=== PATIENT | male | born 1960 | race Caucasian/White ===

== ENCOUNTER 2021-05-25 06:05 | Day surgery (SDC) | payer MEDICARE ==
[~2021-05-25] VITALS: Ht 177.8 cm; Wt 147.7 kg
[~2021-05-25 06:05] MED LIST: BIAXIN500 MG PO; GRAPE SEED50 M1 PO; HYZAAR 100-12.1 EACH; NORCO 10-325 T1 EACH PO; PERCOCET 5-3251 EACH PO
--- NOTE | 2021-05-25 07:59 | NUR ---
05/25/21 0759 Tosha Moe 0755- PT ARRIVES TO PACU AWAKE AND TALKING. PT REPORTS NO PAIN OR NAUSEA. RESP EVEN AND UNLABORED. OXYGEN SAT MID TO HIGH 90'S ON RA.
--- NOTE | 2021-05-25 09:05 | NUR ---
CONNECTED WITH PT, HAS HAD SCOPE BEFORE GAVE BLESSING WILL FOLLOW
--- NOTE | 2021-05-25 09:23 | OR ---
[facility] [address] [place], [place] [address] Signed DATE OF OPERATION: 05/25/2021 SURGEON: Lucia Chamberlain MD PREOPERATIVE DIAGNOSES: 1. Personal history of colonic polyps in 2016. 2. Diverticulosis. 3. Internal hemorrhoids. POSTOPERATIVE DIAGNOSES: 1. Moderate sigmoid diverticulosis. 2. Minimal to moderate internal hemorrhoids. 3. 4 mm polyp at 28 cm (sigmoid). 4. 4 mm polyp at 60 cm. 5. 8 mm and 3 mm polyps at 120 cm (snare). 6. 4 mm polyp at 105 cm. 7. 4 mm polyp at 22 cm (rectum). PROCEDURE: Colonoscopy with snare polypectomy and hot biopsy. ESTIMATED BLOOD LOSS: None. INDICATIONS: Oneil is a 60-year-old gentleman asked to see me for followup colonoscopy. He came for his initial screening colonoscopy in 2016 with myself. He had adenomatous polyps removed at that time. He also has diverticulosis along with internal hemorrhoids. Currently, he has no lower GI complaints. There is no family history of colon cancer or polyps. He is on disability and has to take daily hydrocodone. He is also a very large man. He said he cut his drinking way down as well. We had used monitored anesthesia care in 2016. We went ahead and did that again on this occasion for his safety and efficacy. In the office, I had given him a pamphlet on colonoscopy. He recalled the test well. There is risk including, but not limited to gas bloating, crampy abdominal pain, bleeding, perforation requiring surgery, and missed diagnosis. We also had discussed the need for the monitored anesthesia care. He had expressed understanding and wished to proceed. PROCEDURE NOTE: Oneil was taken into our endoscopy suite and placed in the left lateral decubitus Electronically Signed By: LUCIA CHAMBERLAIN MD 05/25/21 0923 PATIENT NAME: ONEIL WILKINS OPERATIVE REPORT DATE OF : 64 REPORT #: [id number] PHYSICIAN: LUCIA CHAMBERLAIN MD PCP: JOSH VEGA MD REPORT IS CONFIDENTIAL AND NOT TO BE RELEASED WITHOUT AUTHORIZATION [facility] [address], [place] [address] Signed position. He was given monitored anesthesia care with propofol per our nurse patent chemist. A digital rectal exam was performed and he is a very large man. Not much in the way of external hemorrhoids. He had good sphincter tone. I can feel the bottom of his prostate and it is enlarged and indurated. The adult colonoscope was then introduced and advanced all the way around into the cecum under direct visualization of the camera without difficulty. Unfortunately, his prep was not the best. It sounds like he had a turkey sandwich midmorning yesterday before starting his prep. He probably should have a double prep in the future particularly since he has to use hydrocodone every day. The scope had been slowly withdrawn. We could easily see his ileocecal valve. We took pictures throughout for photodocumentation. We removed the above mentioned polyps with the help of hot biopsy forceps. We did use our snare for an 8 mm polyp at 120 cm. The base of that was then destroyed with hot cautery. Again, he has diverticuli in the sigmoid colon. They are moderate in size, moderate in number, and scattered about. Once in the rectum, the scope had been retroflexed. He does have minimal to moderate internal hemorrhoid columns. After this, the gas was suctioned out and the colonoscope removed. Oneil tolerated the procedure quite well. RECOMMENDATIONS: I will see Oneil back in my office in 7 to 14 days to review his results. He should consider double bowel prep in the future due to his daily need for hydrocodone. Lucia Chamberlain MD ALB/MODL /[id number] cc: MD Josh Lebron MD Copies: LUCIA CHAMBERLAIN MD, ROBERT D DMD ~ Electronically Signed By: LUCIA CHAMBERLAIN MD 05/25/21 0923 PATIENT NAME: ONEIL WILKINS OPERATIVE REPORT DATE OF : 64 REPORT #: [id number] PHYSICIAN: LUCIA CHAMBERLAIN MD PCP: JOSH VEGA MD REPORT IS CONFIDENTIAL AND NOT TO BE RELEASED WITHOUT AUTHORIZATION
--- NOTE | 2021-05-28 10:20 | PATH ---
[facility] [address] [place], [place] [address] Signed SPECIMEN(S): A SIGMOID POLYP AT 28 CM SPECIMEN(S): B COLON POLYP AT 60 CM SPECIMEN(S): C COLON POLYP AT 120 CM SPECIMEN(S): D COLON POLYP AT 105 CM SPECIMEN(S): E COLON POLYP AT 22 CM SPECIMEN SOURCE: A. SIGMOID POLYP AT 28 CM B. COLON POLYP AT 60 CM C. COLON POLYP AT 120 CM D. COLON POLYP AT 105 CM E. COLON POLYP AT 22 CM CLINICAL HISTORY: Colonoscopy. History of polyps, diverticulosis. Postop: Polyps (colon), diverticulosis, internal hemorrhoids. FINAL PATHOLOGIC DIAGNOSIS: A. Colon, sigmoid, polyp at 28 cm, polypectomy: - Hyperplastic polyp. - Negative for dysplasia or malignancy. B. Colon, polyp at 60 cm, polypectomy: - Tubular adenoma. - Negative for high-grade dysplasia or malignancy. C. Colon, poly at 120 cm, polypectomy: - Fragments of tubular adenoma. - Negative for high-grade dysplasia or malignancy. D. Colon, polyp at 105 cm, polypectomy: - Tubular adenoma. - Negative for high-grade dysplasia or malignancy. E. Colon, polyp at 22 cm, polypectomy: - Hyperplastic polyp. - Negative for dysplasia or malignancy. NAL:cml:C2NR MICROSCOPIC EXAMINATION: Histologic sections of all submitted blocks are examined by light microscopy. These findings, together with the gross examination, support the pathologic diagnosis. GROSS DESCRIPTION: PATIENT NAME: CARIDAD WILKINS PATHOLOGY DATE OF : 64 REPORT #: [id number] PHYSICIAN: STELLA HINOJOSA PCP: JOSH VEGA MD REPORT IS CONFIDENTIAL AND NOT TO BE RELEASED WITHOUT AUTHORIZATION [facility] [address] [place], [place] [address] Signed Five specimens are received in five containers labeled with "WD." A. The specimen, labeled "WD, 1," and designated on the requisition "sigmoid polypectomy at 28 cm," is received in formalin and consists of two fragments of pink-singletary tissue (0.3 and 0.6 cm in greatest dimension). The specimen is submitted entirely in cassette (A1). B. The specimen, labeled "WD, 2," and designated on the requisition "60 cm colon polypectomy," is received in formalin and consists of one fragment of pink-singletary tissue (0.3 cm in greatest dimension). The specimen is submitted entirely in cassette (B1). C. The specimen, labeled "WD, 3," and designated on the requisition "colon polypectomy at 120 cm," is received in formalin and consists of two fragments of pink-singletary tissue (0.3 cm in greatest dimension). The specimen is submitted entirely in cassette (C1). D. The specimen, labeled "WD, 4," and designated on the requisition "colon polypectomy at 105 cm," is received in formalin and consists of one fragment of pink-singletary tissue (0.3 cm in greatest dimension). The specimen is submitted entirely in cassette (D1). E. The specimen, labeled "WD, 5," and designated on the requisition "colon Polypectomy at 22 cm," is received in formalin and consists of two fragments of pink-singletary tissue (0.3 cm in greatest dimension). The specimen is submitted entirely in cassette (E1). AC (under the direct supervision of a pathologist) The Gross Description was prepared using a voice recognition system. The report was reviewed for accuracy; however, sound-alike word errors, addition and/or deletions may occur. If there is any question about this report, please contact Client Services. PERFORMING LABORATORY: The technical component was performed by [facility] [address] (Steam Cleaner: Nallely Cerda MD; CLIA# [id number]) Professional interpretation was performed by [facility], [address] [address] (CLIA# [id number]). Diagnostician: Nilda Saavedra MD Pathologist Electronically Signed 05/28/2021 Copies: PATIENT NAME: CARIDAD WILKINS PATHOLOGY DATE OF : 64 REPORT #: [id number] PHYSICIAN: STELLA HINOJOSA PCP: JOSH VEGA MD REPORT IS CONFIDENTIAL AND NOT TO BE RELEASED WITHOUT AUTHORIZATION [facility] [address] [place], [place] [address] Signed ~ PATIENT NAME: CARIDAD WILKINS PATHOLOGY DATE OF : 64 REPORT #: [id number] PHYSICIAN: STELLA HINOJOSA PCP: JOSH VEGA MD REPORT IS CONFIDENTIAL AND NOT TO BE RELEASED WITHOUT AUTHORIZATION
== END 2021-05-25 08:28 | disposition home or self-care (01) ==
LOC: DS 06:05 → OPS 06:05 → DS 06:45 → OPS 07:30 → DS 07:30 → OPS 08:28
PROVIDERS: ATTEND Colon & Rectal Surgery
PROC: 0DBE8ZX Excision of Large Intestine, Via Natural or Artificial Opening Endoscopic, Diagnostic (ICD-10-PCS; 2021-05-25)
PROC: 0DBE8ZX Excision of Large Intestine, Via Natural or Artificial Opening Endoscopic, Diagnostic (ICD-10-PCS; principal; 2021-05-25 06:45)
DX: D12.6 Benign neoplasm of colon, unspecified (principal); I10 Essential (primary) hypertension; K57.30 Diverticulosis of large intestine without perforation or abscess without bleeding; K64.8 Other hemorrhoids; E66.9 Obesity, unspecified
CPT/HCPCS: 80053; 85025; J0690; J2001; J2704; J7121

== ENCOUNTER 2024-11-11 10:46 | Day surgery (SDC) | payer MEDICARE ==
[~2024-11-11] VITALS: Ht 177.8 cm; Wt 170.0 kg
--- NOTE | ~2024-11-11 | OR ---
[facility] [address] [place], [place] [address] Draft DATE OF OPERATION: 11/11/2024 SURGEON: Josh Krishnamurthy DO PREOPERATIVE DIAGNOSIS: Colon cancer screening. POSTOPERATIVE DIAGNOSES: Colon cancer screening with sigmoid diverticulosis. PROCEDURE PERFORMED: Colonoscopy. ANESTHESIA: IV sedation. EBL: None. DRAINS: None. COMPLICATIONS: None. DESCRIPTION OF PROCEDURE: The patient was brought to the GI lab, placed in supine position. After induction of IV sedation, the patient was placed in left lateral position and padded to the satisfaction of anesthesia. Digital rectal exam was performed. was noted. The Olympus video colonoscope was then introduced into the rectum and directed to the length of the rectosigmoid, sigmoid colon, descending colon, past the splenic flexure, transverse colon, past the hepatic flexure into the ascending colon and cecum. This was all done under direct visualization insufflating. At this point, colon was fully insufflated to observe the mucosal surface. The cecum and ascending colon were without lesions or ulceration. No intrinsic or extrinsic masses were noted. Scope was then brought back past the hepatic flexure into the transverse colon. No intrinsic or extrinsic masses or lesions or ulceration were appreciated. Scope was brought back to the splenic flexure. No intrinsic or extrinsic masses were noted. The scope was brought back into the descending colon. No intrinsic or extrinsic masses or lesions or ulceration were noted. Scope was brought back into the sigmoid colon. Scattered PATIENT NAME: CARIDAD WILKINS OPERATIVE REPORT DATE OF : 64 REPORT #: [id number] PHYSICIAN: JOSH KRISHNAMURTHY DO PCP: JOSH VEGA MD REPORT IS CONFIDENTIAL AND NOT TO BE RELEASED WITHOUT AUTHORIZATION [place] [id number] [facility] [place], [place] [address] Draft diverticula were appreciated, but no evidence of diverticulitis is noted. Otherwise, the sigmoid had no lesions, ulcerations, intrinsic or extrinsic masses other than the diverticula. Rectosigmoid was essentially unremarkable. The scope was withdrawn. The patient tolerated the procedure well, went to recovery room in satisfactory condition. DO LISA Lombardo/MARCO /[id number] Copies: ~ PATIENT NAME: CARIDAD WILKINS OPERATIVE REPORT DATE OF : 64 REPORT #: [id number] PHYSICIAN: JOSH KRISHNAMURTHY DO PCP: JOSH VEGA MD REPORT IS CONFIDENTIAL AND NOT TO BE RELEASED WITHOUT AUTHORIZATION
[~2024-11-11 10:46] MED LIST changes: +CEFAZOLIN SODIUM 2 GM/20 ML SYR IV ONE; +HYDROCODON-ACE1 EAC8 PO; +IBLOOD GLUCOSE TEST STRIP 1 EA TEST VI PRN; +LACTATED RINGER'S 1,000 ML IV SCH; +LIDOCAINE HCL 1% 5 ML SDV INJ ONE; +LOSARTAN POTASS50 MG PO; +METOPROLOL SUCC25 MG PO; +VITAMIN D250 MC1 PO
[2024-11-11 11:04] VITALS: BP 146/85
[2024-11-11] MEDS ORDERED: CEFAZOLIN SODIUM 3 GM/30 ML SYR IV SCH (11:09)
[2024-11-11] MEDS ORDERED: GLUCAGON,HUMAN RECOMBINANT 1 MG/ML VIAL ONE (11:38)
[2024-11-11] MEDS ORDERED: GLYCOPYRROLATE 1 MG/5 ML MDV ONE (12:12)
[2024-11-11] MEDS ORDERED: KETAMINE in NS 50 MG/5 ML SYR ONE (12:18)
--- NOTE | 2024-11-11 12:58 | NUR ---
11/11/24 1258 Marisabel Hewitt 1240-PT ARRIVES TO PACU, VIA STRETCHER, RESTING ON LT SIDE, PT DROWSY BUT ANSWERES QUESTIONS, DENIES PAIN OR NAUSEA, VSS ON 10L VIA MASK. 1255-PT AWAKENS EASILY TO VOICE, DENIES PAIN OR NAUSEA, TITRATED TO RA, VS REMAIN STABLE, PT PASSING GAS.
[2024-11-11 13:04] VITALS: BP 117/72
== END 2024-11-11 13:25 | disposition home or self-care (01) ==
LOC: OPS 10:46 → DS 10:46 → OPS 13:20 → DS 13:20 → OPS 13:25 → DS 14:05
PROVIDERS: ATTEND Surgery
PROC: 0DJD8ZZ Inspection of Lower Intestinal Tract, Via Natural or Artificial Opening Endoscopic (ICD-10-PCS; principal; 2024-11-11 14:05)
DX: Z12.11 Encounter for screening for malignant neoplasm of colon (principal); K57.30 Diverticulosis of large intestine without perforation or abscess without bleeding; G89.4 Chronic pain syndrome; I10 Essential (primary) hypertension; E29.1 Testicular hypofunction; M17.11 Unilateral primary osteoarthritis, right knee; R73.03 Prediabetes; Z85.528 Personal history of other malignant neoplasm of kidney; Z86.0101 Personal history of adenomatous and serrated colon polyps; Z79.899 Other long term (current) drug therapy; Z88.0 Allergy status to penicillin; Z90.5 Acquired absence of kidney; Z96.652 Presence of left artificial knee joint
CPT/HCPCS: 00811; J0690; J1610; J2704; J3490; J7121